=== PATIENT | female | born 1935 | race Caucasian/White ===

== ENCOUNTER → 2017-05-01 | Outpatient (CLI) | payer MEDICARE ==
[~2017-05-01] MED LIST: /PRAV20TA PO; BIMA01SOL OU; BRIM2OPD OU; COSOPHPLUS OU; DIOV320T PO; GLIM4TAB PO; METF500T PO
--- NOTE | 2017-05-09 17:19 | REP ---
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 Whole body PET scanning is performed from skull base to the upper thighs. Neck and supraclavicular areas: There are no hypermetabolic foci. Chest: There are no hypermetabolic foci. Abdomen, pelvis and upper thighs: There are no hypermetabolic foci except for nonspecific bowel uptake. There is physiologic radiolabeling of the renal pelves. Impression: There are no hypermetabolic foci. There is physiologic radio labeling of the renal pelves. The study is performed with 10 mCi caries of F 18 FDG . Signed by Reese Patricia MD 05/09/2017 05:11 P
== END ==
LOC: M PLARAD 09:24
PROVIDERS: ATTEND Internal Medicine Medical Oncology
DX: C85.90 Non-Hodgkin lymphoma, unspecified, unspecified site (principal)
CPT/HCPCS: 78815; A9552

== ENCOUNTER 2025-09-21 16:55 | Emergency (ER) | payer MEDICARE ==
[~2025-09-21] VITALS: Ht 152.4 cm; Wt 59.1 kg
[~2025-09-21 16:55] MED LIST changes: -/PRAV20TA PO; +BIMA01SOL OS; +BRIM5DRO25 OS; -COSOPHPLUS OU; +DORZ2SOL11 OU; +DORZ2SOL5; +DORZ2SOL5 OS; +EZET10TA58 PO; +GLIM4TAB5 PO; +IRBE150T27 PO; +METF500T13 PO; +NETA2.5D2 OP; +OLME20TA50 PO; +ONGL1TAB9 PO; +PIOG1TAB36; +PRAV1TAB39 PO; +PRAV20TA78 PO; +VYZU0.02 OP
[2025-09-21 17:39] LABS: BASO # 0.0 10^3/uL (0.0-0.2); BASO % 0.3 % (0.0-1.0); EOS # 0.1 10^3/uL (0.0-0.5); EOS % 1.0 % (0.0-3.0); LYMPH # 2.2 10^3/uL (1.5-5.0); LYMPH % 22.3 % (24.0-44.0); MONO # 1.0 10^3/uL (0.0-0.8); MONO % 9.6 % (2.0-8.0); NEUTROPHILS # 6.5 10^3/uL (1.5-8.5); NEUTROPHILS % 66.4 % (36.0-66.0); PLATELET COUNT, AUTOMATED 256 10^3/uL (150-450)
[2025-09-21] MEDS: ONDANSETRON 4MG/2ML VIAL IV ONE (18:00)
[2025-09-21 18:47] LABS: CALCIUM LEVEL 9.6 MG/DL (8.3-10.6); CARBON DIOXIDE LEVEL 25.0 MMOL/L (20-31); CHLORIDE LEVEL 103.0 MMOL/L (98-107); CREATININE FOR GFR 1.2 MG/DL (0.55-1.30); GLOMERULAR FILTRATION RATE 43.5 (>32); POTASSIUM SERUM 6.0 MMOL/L (3.5-5.1); SODIUM LEVEL 140.0 MMOL/L (136-145)
[2025-09-21 20:30] VITALS: TEMP 96.9; O2SAT 98
[2025-09-21 20:31] VITALS: BP 197/82
== END 2025-09-21 20:51 | disposition home or self-care (01) ==
LOC: EDBD 16:55 → M ED 16:55 → EDSEX 16:55 → M ED 20:51
DX: S00.83XA Contusion of other part of head, initial encounter (principal); W01.198A Fall on same level from slipping, tripping and stumbling with subsequent striking against other object, initial encounter; M50.30 Other cervical disc degeneration, unspecified cervical region; M25.78 Osteophyte, vertebrae; I10 Essential (primary) hypertension; E78.5 Hyperlipidemia, unspecified; E11.9 Type 2 diabetes mellitus without complications; Z88.6 Allergy status to analgesic agent; Z88.7 Allergy status to serum and vaccine; Y92.007 Garden or yard of unspecified non-institutional (private) residence as the place of occurrence of the external cause; Y93.89 Activity, other specified; Y99.9 Unspecified external cause status; Z79.899 Other long term (current) drug therapy; Z79.4 Long term (current) use of insulin
CPT/HCPCS: 36415; 70450; 70486; 72125; 80047; 80048; 84132; 85025; 96374; 99284; J2405